=== PATIENT | male | born 1995 | race Caucasian/White ===

== ENCOUNTER 2024-03-24 10:44 | Emergency (ER) | payer BC, SELFPAY ==
[2024-03-24 10:46] VITALS: BP 164/91
[2024-03-24 11:01] VITALS: BMI 30.4
--- NOTE | 2024-03-24 11:03 | ED.GENMED ---
History of Present Illness
General
Chief Complaint: Abdominal Symptoms
Source: patient
Exam Limitations: none
Time Seen by Provider: 03/24/24 10:51
History of Present Illness
History of Present Illness:
See MDM
Past History
Past History
ED Past Medical History: Seizures, Other (psoriasis) and Other (Pancreatitis)
ED Past Surgical History: None
Patient has exhibited threatening behavior?: No
Social History
Tobacco: Former smoker
Alcohol: Former
Drug: None
Living: with family
Employment: Employed
Family History
Family History: Diabetes and CAD
Phy Exam
Physical Exam
Physical Exam:
See MDM
Course
Orders/Labs/Results
Orders:
Orders
03/24/24 10:58
CT Abd/pelvis W Iv Cont Urgent
Comment:
Reason For Exam: vomiting, general abd pain with fever
0.9% Sodium Chloride 1000 ml [Nss] 1,000 ml IV BOLUS
Ketorolac [Toradol] 30 mg IV NOW STA
Ondansetron Injectable [Zofran] 4 mg IV NOW STA
03/24/24 11:00
Complete Blood Count/With Diff Urgent
Comprehensive Metabolic Panel Urgent
Lipase Urgent
Abnormal Lab Results
03/24/24
11:00
Absolute Lymphs (auto) 1.0 L 10^3/uL
(1.2-3.4)
Neutrophils % 75.6 H %
(42.2-75.2)
Lymphocytes % 12.3 L %
(20.5-51.1)
03/24/24 11:00
03/24/24 11:00
Vital Signs
Initial and Last Documented VS:
Initial Vital Signs
Temp Pulse Resp BP Pulse Ox
98.8 F 71 16 164/91 98
03/24/24 10:46 03/24/24 10:46 03/24/24 10:46 03/24/24 10:46 03/24/24 10:46
Last Documented Vital Signs
Temp Pulse Resp BP Pulse Ox
98.8 F 71 16 164/91 98
03/24/24 10:46 03/24/24 10:46 03/24/24 10:46 03/24/24 10:46 03/24/24 10:46
MDM/Problems Addressed
Differential Diagnosis Includes:
HPI and MDM Narrative:
28-year-old male presenting for evaluation of several days of abdominal pain. This was preceded by several episodes of vomiting. He now has abdominal cramping and significant mount of diarrhea. He developed fever yesterday. He denies sick
contacts. On exam, patient is clinically dry. He has generalized abdominal tenderness on exam but no focal tenderness. There is no rebound. We discussed the likelihood of viral gastroenteritis and potentially norovirus. Will provide IV fluids
and IV Toradol. Will obtain CT looking for other infectious pathology
Physical exam
General: Well appearing and non-toxic
HEENT: protecting airway. Dry mucous membranes
Neck: appears supple
CV: No evidence of cyanosis
Resp: No accessory muscle use
Abd: Non-distended. Generalized tenderness without rebound
Extremities: No deformities
Neuro: alert
Psych: Normal affect
Skin: Intact
Problems Addressed including Acute and Chronic Conditions affecting care:
1. Abdominal pain with nausea, vomiting and diarrhea
Acuity: acute
Prognosis: stable
Details: Likely in the setting of viral gastroenteritis. Will obtain CT to rule rule out any infectious or surgical pathology
2. Dehydration
Acuity: acute
Prognosis: stable
Details: Will give IV fluids
3. Nausea
Acuity: acute
Prognosis: stable
Details: Patient started on IV Zofran
Updates
CT shows evidence of enteritis. Patient feeling better after IV fluids. No clinically relevant abnormality noted on blood work. Patient feels comfortable going home
Differential Diagnosis (but not limited to): Viral gastroenteritis, pancreatitis, colitis
Testing considered: Norovirus testing
Drug therapy (if applicable): OTC meds, please see d/c instruction regarding Rx drugs
Amount and/or Complexity of Data Reviewed
Clinical info obtained from: Patient
External data reviewed: N/A
Labs I independently reviewed (but not limited to): Electrolytes normal
Radiology: The CT scan was personally and independently reviewed. In addition, official CT report reviewed.
Pulse Ox: not hypoxic
EKG independently reviewed: N/A
Geospatial Technician: N/A
Critical Care: N/A
Risk of Complication:
Social Determinants of health: Good social support
Discussed with other providers: N/A
Escalation of Care includes Admit/Obs: After being observed in the Emergency Department, pt stable for discharge.
Occasional wrong word or 'sound a like' substitutions may have occurred due to the inherent limitations of voice recognition software. Read the chart carefully and recognize, using context, where substitutions have occurred.
*Critical Care Note
Total Time (30-74mins, 75-104mins- exclusive of procedures): Not Applicable
ED Attending Note
-
Portions of this chart may have been created with voice recognition software.� Occasional wrong word or��sound alike� substitutions may have occurred due to the inherent limitations of voice recognition software.
Discharge Plan
Departure
Patient Disposition: Home (Routine Discharge)
Date of Disposition: 03/24/24
Time of Disposition: 13:09
Patient with high blood pressure during this ER visit?: Yes
Discharge Problem:
Acute gastroenteritis
Instructions: Viral gastroenteritis in adults, BLOOD PRESSURE
Prescriptions:
New
ondansetron 4 mg Tablet,Disintegrating
4 mg PO BIDPRN PRN (Reason: nausea/vomiting) Qty: 10 0RF
No Action
amoxicillin 500 mg capsule
500 mg PO TID 10 Days Qty: 30 0RF
Referrals:
NONE,* [Family Provider] -
Stand Alone Forms: Return to Work
Activity Restrictions/Additional Instructions:
Please return for any worsening symptoms.
You may return at any time if you have further concerns.
Please follow up with your doctor at the first available appointment, preferably this week.
Thank you for choosing [facility].
Interventions
Interventions:
*Risk Screen - Suicide Last Done: 03/24/24 10:46
*General Assessment Last Done: 03/24/24 11:01
*Neglect/Abuse Screening Last Done: 03/24/24 10:46
ED- Fall Risk Assessment Last Done: 03/24/24 11:11
*ED COVID-19 Vaccine History Last Done: 03/24/24 11:01
QZ-Wvjdus-Hylqmlceos Assessment Last Done: 03/24/24 11:11
Discharge Date and Time
Print Language: FINNISH
[2024-03-24] MEDS: ZOFRAN 4 MG IV (11:08)
[2024-03-24] MEDS: TORADOL 30 MG IV (11:09)
[2024-03-24] MEDS: NSS 1000 IV (11:09)
[2024-03-24 11:17] LABS: % Basophils 0.5 % (0-2); % Immature Granulocytes 0.3 % (0-0.5); % Lymphocytes 12.3 % (20.5-51.1); % Monocytes 8.3 % (1.7-9.3); % Neutrophils 75.6 % (42.2-75.2); Absolute Eosinophils 0.2 10^3/uL (0-0.7); Absolute Monocytes 0.6 10^3/uL (0.1-0.6); Absolute Neutrophils 5.9 10^3/uL (1.4-6.5); Hematocrit 43.8 % (39.0-52.0); Hemoglobin 15.3 g/dL (13.0-18.0); Mean Corp Hgb Conc. 34.9 g/dL (33.0-37.0); Mean Corpuscular Hgb 30.2 pg (27.0-31.0); Mean Corpuscular Volume 86.4 fL (80.0-94.0); Mean Platelet Volume 9.1 fL (7.4-10.4); Nucleated Red Blood Cells % 0 % (-); Platelet Count 302 10^3/uL (130-400); Red Blood Cell Count 5.07 10^6/uL (4.70-6.10); Red Cell Dist. Width 12.6 % (11.5-14.5); White Blood Cell Count 7.7 10^3/uL (4.8-10.8)
[2024-03-24 11:32] LABS: ALT (SGPT) 29 U/L (0-50); AST (SGOT) 33 U/L (17-59); Albumin 4.1 g/dl (3.5-5.0); Alkaline Phosphatase 65 U/L (38-126); Blood Urea Nitrogen 18 mg/dl (9-20); Carbon Dioxide 24 mmol/L (22-30); Chloride 105 mmol/L (98-107); Estimated Creatinine Clearance 105 ml/min; Glucose 87 mg/dl (70-99); Lipase 42 U/L (23-300); Potassium 4.4 mmol/L (3.5-5.1); Sodium 135 mmol/L (135-145); Total Bilirubin 0.5 mg/dl (0.2-1.3); Total Protein 7.5 g/dl (6.3-8.2); eGFR > 60.00
--- NOTE | 2024-03-24 11:56 | EDRN ---
Patient reports feeling slightly better after meds, updated patient on labs
--- NOTE | 2024-03-24 13:05 | EDRN ---
Dr. Donnelly back in taking with patient about results and plan for discharge
== END 2024-03-24 13:18 | disposition home or self-care (01) ==
LOC: EMR 10:44
PROVIDERS: EMERGENCY PHYSICIAN Student in an Organized Health Care Education/Training Program
DX: K52.9 Noninfective gastroenteritis and colitis, unspecified (principal); Z82.49 Family history of ischemic heart disease and other diseases of the circulatory system; Z83.3 Family history of diabetes mellitus; Z87.891 Personal history of nicotine dependence
CPT/HCPCS: 99284; 74177; 80053; 83690; 85025; Q9967